=== PATIENT | male | born 1990 | race Caucasian/White ===

== ENCOUNTER 2023-11-15 12:26 | Emergency (ER) | payer OTHER ==
[2023-11-15 12:31] VITALS: BP 104/55; PULSE 61; RESP 18; TEMP 98.1; BMI 23.1
[2023-11-15] MEDS ORDERED: IBUPROFEN 600 MG TABLET (FP) PO ONE (13:30)
[2023-11-15] MEDS: IBUPROFEN 600 MG TABLET (FP) PO ONE (13:32)
[2023-11-15 14:50] LABS: HIV INTERPRETATION NEGATIVE (NEGATIVE)
== END 2023-11-15 13:42 | disposition home or self-care (01) ==
LOC: JERFT 12:26
DX: M79.89 Other specified soft tissue disorders (principal)
CPT/HCPCS: 36415; 73130-TC-RT-FY; 87389; 99283-25